=== PATIENT | female | born 1995 | race African-American/Black ===

== ENCOUNTER 2021-10-05 09:07 | Emergency (ER) | payer MEDICAID ==
[~2021-10-05] VITALS: Ht 172.7 cm; Wt 105.0 kg
[2021-10-05 11:15] VITALS: BP 136/70
[2021-10-05] MEDS ORDERED: HYDROCO/APAP1 TA9 PO (11:29)
[2021-10-05] MEDS ORDERED: CLINDAMYCIN300 M1 PO (11:29)
== END 2021-10-05 12:10 | disposition home or self-care (01) ==
LOC: ED 09:07
DX: K04.7 Periapical abscess without sinus (principal); K02.9 Dental caries, unspecified

== ENCOUNTER 2021-12-24 07:14 | Emergency (ER) | payer MEDICAID ==
[~2021-12-24] VITALS: Ht 172.7 cm; Wt 103.0 kg
[~2021-12-24 07:14] MED LIST: CLINDAMYCIN300 M1 PO; HYDROCO/APAP1 TA9 PO
[2021-12-24 09:40] VITALS: BP 140/80
== END 2021-12-24 09:40 | disposition home or self-care (01) ==
LOC: ED 07:14
DX: M54.6 Pain in thoracic spine (principal); M54.50 Low back pain, unspecified; F17.200 Nicotine dependence, unspecified, uncomplicated

== ENCOUNTER 2022-03-16 12:14 | Emergency (ER) | payer MEDICAID ==
[~2022-03-16] VITALS: Ht 172.7 cm; Wt 109.0 kg
[2022-03-16] VITALS (11 sets, daily range): BP systolic 98–134; BP diastolic 56–89
[2022-03-16 12:40] LABS: HEMATOCRIT 31.1 % (37.0-47.0); HEMOGLOBIN 9.2 g/dl (12.0-16.0); IMMATURE GRANULOCYTES 0.3 % (0.0-5.0); MEAN CELL VOLUME 62.4 fL CALC (80.0-100.0); MEAN CORPUSCULAR HGB 18.5 pG CALC (26.0-32.0); MEAN CORPUSCULAR HGB CONC 29.6 g/dL CAL (32.0-36.0); NEUT# 5.4 thou/uL (2.00-7.15); RED BLOOD COUNT 4.98 mill/uL (4.20-5.60); RED CELL DISTRI WIDTH 18.9 % (11.5-15.5)
[2022-03-16 12:56] LABS: ALBUMIN 4.1 g/dL (3.2-5.0); ALKALINE PHOSPHATASE 78 u/l (38-126); ANION GAP 13 (6-22 (CALC)); BILIRUBIN, TOTAL 0.1 mg/dL (0.0-1.4); BUN 4 mg/dL (7-17); BUN/CREATININE RATIO 6 (12-20 (CALC)); CARBON DIOXIDE 23 mmol/l (22-30); CHLORIDE 107 mmol/l (95-108); CREATININE 0.6 mg/dL (0.5-1.0); GFR FOR AFR.AMER. > 60 ML/MIN (>=60 (CALC)); GFR OTHER RACES > 60 ML/MIN (>=60 (CALC)); LIPASE 24 u/l (23-300); POTASSIUM 3.6 mmol/l (3.5-5.1); SGOT/AST 25 u/l (14-36); SODIUM 139 mmol/l (137-146); TOTAL PROTEIN 7.9 g/dL (6.3-8.2)
[2022-03-16 14:51] LABS: URINE BILIRUBIN - DIPSTICK NEGATIVE (NEGATIVE); URINE BLOOD DIPSTICK SMALL (NEGATIVE); URINE COLOR YELLOW; URINE GLUCOSE - DIPSTICK NEGATIVE (NEGATIVE); URINE KETONE NEGATIVE (NEGATIVE); URINE PROTEIN - DIPSTICK NEGATIVE (NEG-TRACE); URINE SPECIFIC GRAVITY 1.015; URINE UROBILINOGEN - DIPSTICK 0.2 E.U./dL (0.2)
[2022-03-16 14:53] LABS: URINE LEUK ESTERASE SMALL (NEGATIVE); URINE NITRITE - DIPSTICK NEGATIVE (Negative)
[2022-03-16 14:59] LABS: URINE BACTERIA FEW hpf; URINE SQUAMOUS EPITHELIAL CELL MANY EPI/hpf (0-FEW)
[2022-03-16] MEDS ORDERED: CIPROFLOXACN500 MG PO (15:09)
[2022-03-16] MEDS ORDERED: PAXLOVID PO (15:09)
[2022-03-16] MEDS ORDERED: ULTRAM50 MG PO (15:09)
== END 2022-03-16 15:34 | disposition home or self-care (01) ==
LOC: ED 12:14
DX: U07.1 COVID-19 (principal); N39.0 Urinary tract infection, site not specified; K80.20 Calculus of gallbladder without cholecystitis without obstruction; M94.0 Chondrocostal junction syndrome [Tietze]; R94.31 Abnormal electrocardiogram [ECG] [EKG]
CPT/HCPCS: Q9967

== ENCOUNTER 2022-10-19 20:34 | Emergency (ER) | payer OTHER ==
[~2022-10-19] VITALS: Ht 172.7 cm; Wt 111.0 kg
[~2022-10-19 20:34] MED LIST changes: +CIPROFLOXACN500 MG PO; +PAXLOVID PO; +ULTRAM50 MG PO
[2022-10-19 20:43] VITALS: BP 128/84
[2022-10-19 20:46] VITALS: BP 58/38
[2022-10-19] MEDS ORDERED: GABAPENTIN100 MG PO (20:47)
[2022-10-19 20:48] VITALS: BP 116/75
[2022-10-19 21:09] LABS: URINE BILIRUBIN - DIPSTICK NEGATIVE (NEGATIVE); URINE BLOOD DIPSTICK NEGATIVE (NEGATIVE); URINE COLOR YELLOW; URINE GLUCOSE - DIPSTICK NEGATIVE (NEGATIVE); URINE KETONE TRACE mg/dL (NEGATIVE); URINE LEUK ESTERASE NEGATIVE (NEGATIVE); URINE PROTEIN - DIPSTICK NEGATIVE (NEG-TRACE); URINE SPECIFIC GRAVITY 1.025; URINE UROBILINOGEN - DIPSTICK 0.2 E.U./dL (0.2)
[2022-10-19 21:10] LABS: URINE NITRITE - DIPSTICK NEGATIVE (Negative)
[2022-10-19 21:16] VITALS: BP 114/60
[2022-10-19] MEDS ORDERED: NAPROXEN500 MG PO (22:46)
[2022-10-19] MEDS ORDERED: CYCLOBENZAPRINE10 MG PO (22:46)
[2022-10-19 22:52] VITALS: BP 114/60
== END 2022-10-19 23:14 | disposition home or self-care (01) ==
LOC: ED 20:34
PROVIDERS: Emergency Medicine
DX: S33.5XXA Sprain of ligaments of lumbar spine, initial encounter (principal); K80.20 Calculus of gallbladder without cholecystitis without obstruction; E66.9 Obesity, unspecified; F17.200 Nicotine dependence, unspecified, uncomplicated; X58.XXXA Exposure to other specified factors, initial encounter